=== PATIENT | female | born 1970 | race Caucasian/White ===

== ENCOUNTER 2016-06-03 05:47 | Day surgery (SDC) | payer BC ==
[2016-05-19 09:37] VITALS: BMI 28.8
--- NOTE | 2016-06-02 10:05 | HP ---
[facility] - Chief Complaint Chief Complaint: right knee pain - Past Medical History Allergies/Adverse Reactions: Allergies Allergy/AdvReac Type Severity Reaction Status Date / Time peanut Allergy Severe Difficulty Verified 05/19/16 09:25 Breathing Penicillins Allergy Severe Difficulty Verified 05/19/16 09:25 Breathing ...LMP: 05/19/13 - Current Medications Current Medications: Medication Instructions Recorded NK [No Known Home Medication] 05/19/16 [facility] Physical Exam - Physical Examination General Appearance: Well Nourished, Well Developed, Alert & Oriented x3 ENT: Clear Lung: Normal air movement Heart: Regular rate & rhythm Extremities: Other (right knee- + swelling, + ttp, decr rom, nvi xrays show medial and PF djd) Neurological: Intact, Alert, Oriented Satellite Impression/Plan - Impression/Plan Impression: right knee djd Operative Procedure: right bicom makoplasty Date to be Performed: 06/03/16
[2016-06-03] MEDS ORDERED: TRANEXAMIC ACID 1000 MG/10 ML VIAL IVPUSH ONE (06:18)
[2016-06-03] MEDS ORDERED: GABAPENTIN 300 MG CAPSULE (FP) PO ONE (06:18)
[2016-06-03] MEDS ORDERED: CEFAZOLIN 2 GM in DEXTROSE 5%-WATER - 50 ML IVPB ONE (06:18)
[2016-06-03] MEDS ORDERED: ROPIVICAINE 0.2%/MORPH PF/KETOROLAC - 51ML DISP.SYRINGE IA ONE ×2 (06:18→10:22)
[2016-06-03] MEDS ORDERED: CELECOXIB 200 MG CAPSULE PO ONE (06:18)
[2016-06-03] MEDS ORDERED: oxyCODONE HCL 10 MG SUSTAINED ACTING TABLET PO ONE (06:18)
[2016-06-03] MEDS ORDERED: MIDAZOLAM HCL 2 MG/2 ML SINGLE DOSE VIAL ONE (06:28)
[2016-06-03] MEDS ORDERED: DEXAMETHASONE SOD PHOSPHATE/PF 10 MG/ML SDV ONE (06:28)
[2016-06-03] MEDS ORDERED: ROPIVACAINE HCL 0.5% 30ML VIAL ONE (06:28)
[2016-06-03] MEDS ORDERED: LIDOCAINE 1% P/F 10 MG/ML VIAL ONE (06:32)
[2016-06-03] MEDS ORDERED: THROMBIN (BOVINE) 5,000 UNIT VIAL TP ONE ×2 (07:17→08:55)
[2016-06-03] MEDS ORDERED: GELATIN, ABSORBABLE 100 EACH SPONGE TP ONE (07:18)
[2016-06-03] MEDS ORDERED: ceFAZolin SODIUM 1 GM VIAL ONE (07:52)
[2016-06-03] MEDS ORDERED: PROPOFOL 20 ML ONE ×5 (07:52→10:02)
[2016-06-03] MEDS ORDERED: ONDANSETRON 4 MG/2 ML VIAL IVPUSH PRN (10:01)
[2016-06-03] MEDS ORDERED: ACETAMINOPHEN 1000 MG/100 ML VIAL (NON FORMULARY) IVPB ONE (10:02)
[2016-06-03] MEDS ORDERED: oxyCODONE HCL 5 MG TABLET PO PRN (10:03)
[2016-06-03] MEDS ORDERED: LACTATED RINGERS SOLUTION 1,000 ML IV SCH ×2 (10:15→11:00)
[2016-06-03] MEDS ORDERED: MAG HYDROX/AL HYDROX/SIMETH 30 ML UNIT-DOSE CUP PO PRN (10:50)
--- NOTE | 2016-06-03 10:54 | OP ---
Operative Note - Note: Operative Date: 06/03/16 (ksenia) Pre-Operative Diagnosis: right knee djd Operation: right bicom makoplasty Post-Operative Diagnosis: Same as Pre-op Surgeon: [facility] Food Service Worker: Donavan Raymond) Anesthesiologist/DRUM HANDLER: Ronny Kumar Anesthesia: Spinal, Local Specimens Removed: bone fragments Estimated Blood Loss (mls): 100 Operative Report Dictated: Yes
[2016-06-03] MEDS ORDERED: ONDANSETRON 4 MG/2 ML VIAL IVPB PRN (16:03)
[2016-06-03] MEDS: oxyCODONE HCL 5 MG TABLET PO PRN ×2 (16:45→21:33)
[2016-06-03] MEDS ORDERED: VANCOMYCIN 1,250 MG in DEXTROSE 5%-WATER - 250 ML IVPB ONE (20:00)
[2016-06-03] MEDS ORDERED: REFRIGERATED ANITBIOTICS ONE (21:10)
[2016-06-03] MEDS: SENNOSIDES/DOCUSATE COMBO (SENNA PLUS) TABLET (UD) PO SCH (21:33)
[2016-06-03] MEDS: GABAPENTIN 300 MG CAPSULE (FP) PO SCH (21:34)
[2016-06-03] MEDS: oxyCODONE HCL 10 MG SUSTAINED ACTING TABLET PO SCH (21:34)
[2016-06-04] MEDS ORDERED: ASPIRIN 325 MG TABLET PO SCH (08:00)
--- NOTE | 2016-06-04 08:02 | PN ---
Progress Note (short form) - Note Progress Note: Ortho Pt seen and examined s/p right bicom toya pod #1 Selected Entries 06/04/16 06:00 Temperature 99.2 F Pulse Rate 62 Respiratory 18 Rate Blood Pressure 123/79 dressing c/d/i, calf soft, nt rom 0-60, nvi a/p PT dvt ppx pain control d/c home today f/u in 1 week
--- NOTE | 2016-06-04 08:03 | DS ---
Physical Examination Vital Signs: Vital Signs Temperature 99.2 F 06/04/16 06:00 Pulse Rate 62 06/04/16 06:00 Respiratory Rate 18 06/04/16 06:00 Blood Pressure 123/79 06/04/16 06:00 O2 Sat by Pulse Oximetry (%) 94 L 06/04/16 06:00 Discharge Summary Reason For Visit: RIGHT KNEE OSTEOARTHRITIS Procedures: Principal: s/p right bicom toya Hospital Course: admitted for elective right bicom toya, uneventful post-op, stable for d/c Condition: Good - Instructions Diet, Activity, Other Instructions: Post-op Instructions-Partial Knee Replacement Call the office for a follow-up appointment in 1 week - [phone] Aspirin 325mg daily for 6 weeks. Pain medication was sent into your pharmacy. Apply Graduated Compression Stockings (TEDs) to both lower extremities- remove daily for hygiene ONLY Apply Sequential Compression Device (SCDs) to both Lower extremities remove for PT and hygiene ONLY Apply cold packs to affected area for 15 minutes every 2 hours. Physical Therapist will come to your home for the first 5 days. You will be set up with outpatient PT at your first post-operative visit. Patient may ambulate as tolerated-encourage self care (at least every 2-3 hours while awake) with walker or cane Maintain Aquacel (waterproof) dressing to operative wound (will be removed by surgeon at first office visit) Shower with Aquacel dressing in place-if Aquacel integrity compromised, remove and apply dry sterile dressing and notify Orthopedist. DO NOT SHOWER unless Orthopedists approves without Aquacel dressing CONTACT THE OFFICE FOR ANY CHANGE IN YOUR CONDITION (for example-fever greater than 102 degrees,excessive bleeding from operative site, purulent drainage, severe swelling or pain) GO TO THE EMERGENCY ROOM IF THERE IS A MEDICAL EMERGENCY Knee Precautions: * Keep a rolled towel under affected heel while in bed or chair (to keep knee in extension) * Keep affected leg elevated except during mealtimes * DO NOT PLACE PILLOW UNDER AFFECTED KNEE * If you have any questions, please do not hesitate to call the office - [phone]. Referrals: Donavan Raymond MD [Staff Physician] - Disposition: VNS/HOME HEALTH CARE - Home Medications Comprehensive Discharge Medication List: Ambulatory Orders Aspirin [ASA -] 325 mg PO DAILY@0800 tablet 06/03/16 Oxycodone HCl/Acetaminophen [Percocet 5-325 mg Tablet -] 1 - 2 tab PO Q6H #50 tab MDD 8 06/03/16
--- NOTE | 2016-06-04 08:59 | OP ---
DATE OF OPERATION: 06/03/2016 PREOPERATIVE DIAGNOSIS: Degenerative joint disease, right knee. POSTOPERATIVE DIAGNOSIS: Degenerative joint disease, right knee. PROCEDURE: Right medial and patellofemoral replacement with robotic assisted navigation (MAKOplasty). SURGICAL ATTENDING: Petre Art MD DIRECTOR FINANCIAL SERVICES: Donavan Raymond MD, and LUPILLO Ho ANESTHESIA: Spinal and regional. CLOSURE: Medial and patellofemoral LUIS components of appropriate size, No. 1 Vicryl fascia, 0 and 2-0 subcutaneous, and 3-0 Monocryl subcuticular with skin glue. ESTIMATED BLOOD LOSS: Less Than 100 mL. COMPLICATIONS: None. CONDITION: To recovery room in stable condition. DESCRIPTION OF OPERATIVE PROCEDURE: Patient was taken to the operating room on June 03, 2016. Spinal and regional anesthesia was administered by the anesthesiologist. IV vancomycin was administered prophylactically as patient was PENICILLIN-allergic. A well-padded pneumatic tourniquet was placed on the right proximal thigh. Preoperative TXA was also administered. The right lower extremity was prepped and draped in the usual sterile fashion. Through 2 small stab incisions in the femur and in the tibia, bicortical pins were drilled in parallel fashion. To these pins were fashion the LUIS arrays. A medial parapatellar arthrotomy was then made utilizing the previous incision from her ACL reconstruction many years prior and then propagating it further proximally. Hemostasis was achieved using Bovie cautery. Sharp dissection was carried down to the level of the extensor mechanism, fish flaps to perform the procedure, just enough to adilene the patella 90 degrees. The patella was then osteotomized down to the appropriate level. A 32 lollypop was used to drill lug holes in the patella. Subperiosteal dissection was done in the anteromedial proximal tibia exposing the medial compartment. Partial fat pad was excised. Checkpoints were placed both on the femur and the tibia. The knee was then registered with the navigation device with center of rotation of the hip, both malleoli, and multiple points on the femur and on the tibia. After excellent registration was done, the osteophytes were then removed. Tensioning was done and flexion and extension at multiple points in serial increasing in flexion in order to propagate a flexion-extension graft. The original components were moved to optimize appropriate position. Cartilage mapping on the transition point between the femur and the trochlear component were also performed as well as confirming sized line and cartilage mapping around the trochlear component. The robot was then brought into the field and registered. The femur, the medial femoral condyle, the trochlea, and the tibia were all cut using the robotic arm to the preoperative template. All excess bone and osteophytes were removed. The meniscus was removed, as well. Trial components were then applied. The knee was taken through a range of motion and felt to get a full extension, full flexion, with excellent tracking of the patella and good tension and flexion and varus/valgus. The trial components were then removed. The knee was post-antibiotic irrigated and packed with Gelfoam and thrombin. The leg was exsanguinated with an Esmarch bandage. The tourniquet was inflated to 275 mmHg. The real components were then cemented in using modern generation cement techniques with antibiotic, cement. The knee was thoroughly inspected to remove all excess cement. A 9-mm polyethylene was then clipped into place. Knee was taken through a range of motion again and felt to have excellent tracking of the patellofemoral joint and good tensioning throughout the flexion and extension with excellent range of motion. The checkpoints and the pins were removed. The knee was thoroughly antibiotic irrigated. Medial parapatellar arthrotomy was then closed using No. 1 Vicryl suture, 0 and 2-0 subcutaneous, 3-0 Monocryl subcuticular for skin with skin glue, a 4-0 Vicryl for the pin sites. Sterile pressure dressing Aquacel variety was applied. Tourniquet was deflated. Total tourniquet time was approximately 25 minutes. Another gram of TXA was given just prior to deflating of the tourniquet. Patient was awakened from anesthesia and transferred to the recovery room in stable condition. No complications. Estimated blood loss about 100 mL. Shania [id number]
--- NOTE | 2016-06-04 09:32 | PN ---
Progress Note (short form) - Note Progress Note: 46F POD1 s/p R knee makoplasty under spinal with adductor canal block doing well. Pt reports pain is well controlled, AVSS, reports no anesthetic complications. Sensory and motor function intact in both lower extremities.
[2016-06-04] MEDS: GABAPENTIN 300 MG CAPSULE (FP) PO SCH (09:43)
[2016-06-04] MEDS: SENNOSIDES/DOCUSATE COMBO (SENNA PLUS) TABLET (UD) PO SCH (09:43)
[2016-06-04] MEDS: oxyCODONE HCL 10 MG SUSTAINED ACTING TABLET PO SCH (09:43)
[2016-06-04] MEDS ORDERED: MULTIVITAMINS (DAILY MVI) TABLET (FP) PO SCH (10:00)
[2016-06-04] MEDS ORDERED: PANTOPRAZOLE 40 MG TABLET (FP) PO SCH (10:00)
[2016-06-04 14:10] VITALS: BP 124/73; PULSE 74; TEMP 98.1
== END 2016-06-04 15:05 | disposition home health service (06) ==
LOC: FASU 05:47 → FM/S 12:26 → FASU 06-04 15:05
PROVIDERS: ATTEND Orthopaedic Surgery
PROC: 8E0YXBZ Computer Assisted Procedure of Lower Extremity (ICD-10-PCS; 2016-06-03)
PROC: 8E0Y0CZ Robotic Assisted Procedure of Lower Extremity, Open Approach (ICD-10-PCS; 2016-06-03)
PROC: 0SRC0L9 Replacement of Right Knee Joint with Medial Unicondylar Synthetic Substitute, Cemented, Open Approach (ICD-10-PCS; principal; 2016-06-03 08:41)
DX: M17.11 Unilateral primary osteoarthritis, right knee (principal)
CPT/HCPCS: 20985; 27446; C1776; S2900; 73560-TC-RT; 84703; 94010; 94760; 97116-GP; 97162-PG

== ENCOUNTER 2016-08-19 14:42 | Emergency (ER) | payer BC ==
[2016-08-19] MEDS ORDERED: methylPREDNISolone NA SUCC 125 MG/2 ML VIAL IVPB ONE (14:46)
[2016-08-19] MEDS ORDERED: SODIUM CHLORIDE 1,000 ML IV STA (14:46)
[2016-08-19] MEDS ORDERED: FAMOTIDINE 20 MG/50 ML IVPB 50 ML IVPB ONE ×2 (14:46→15:00)
[2016-08-19] MEDS ORDERED: ALBUTEROL SO4 0.083% IH SOL 2.5 MG/3 ML VIAL.NEB. NEB ONE ×2 (14:46→15:01)
--- NOTE | 2016-08-19 14:59 | PDOC ---
History of Present Illness - History of Present Illness Initial Comments: 08/19/16 15:08 The patient is a 46 year old female with no PMHx who presents to the ED after an allergic reaction today. Patient states she is unaware what caused her allergic reaction, but she began to get hives and shortness of breath. She took Benadryl and two epi pens with some relief. She presents now still with hives and mildly short of breath. She denies fever, chills, nausea, vomiting, diarrhea. <Emelia Elizabeth - Last Filed: 08/19/16 15:08> - General History Source: Patient Exam Limitations: No Limitations <Dalton Montano - Last Filed: 08/19/16 16:59> - General Chief Complaint: Allergic Reaction Stated Complaint: ALLERGIC Time Seen by Provider: 08/19/16 14:44 Past History <Emelia Elizabeth - Last Filed: 08/19/16 15:08> - Past Medical History Anemia: No Asthma: No Cancer: No Cardiac Disorders: No CVA: No COPD: No CHF: No Dementia: No Diabetes: No GI Disorders: No Disorders: No HTN: No Hypercholesterolemia: No Liver Disease: No Seizures: No Thyroid Disease: No - Surgical History Abdominal Surgery: Yes Appendectomy: No Cardiac Surgery: No Cholecystectomy: Yes Lung Surgery: No Neurologic Surgery: No Orthopedic Surgery: Yes (bilateral knee arthroscopy) - Immunization History Immunization Up to Date: No - Psycho/Social/Smoking Cessation Hx Anxiety: No Suicidal Ideation: No Smoking Status: No Smoking History: Former smoker Have you smoked in the past 12 months: No Number of Cigarettes Smoked Daily: 0 If you are a former smoker, when did you quit?: 1992 Hx Alcohol Use: Yes (SOCIALLY) Drug/Substance Use Hx: No Substance Use Type: Alcohol Hx Substance Use Treatment: No <Dalton Montano - Last Filed: 08/19/16 16:59> - Past Medical History Allergies/Adverse Reactions: Allergies Allergy/AdvReac Type Severity Reaction Status Date / Time peanut Allergy Severe Difficulty Verified 05/19/16 09:25 Breathing Penicillins Allergy Severe Difficulty Verified 05/19/16 09:25 Breathing Home Medications: Ambulatory Orders Aspirin [ASA -] 325 mg PO DAILY@0800 tablet 06/03/16 Oxycodone HCl/Acetaminophen [Percocet 5-325 mg Tablet -] 1 - 2 tab PO Q6H #50 tab MDD 8 06/03/16 Diphenhydramine HCl [Benadryl -] 25 mg PO Q6H PRN #28 capsule 08/19/16 Epinephrine (Epi-Pen 0.3MG) [Epipen 0.3MG -] 0.3 mg IM ASDIR PRN #2 pens Prednisone [Deltasone -] 60 mg PO DAILY #9 tablet 08/19/16 Ranitidine HCl [Zantac] 150 mg PO BID PRN #20 tablet 08/19/16 Review of Systems - Review of Systems Comments:: 08/19/16 15:08 GENERAL/CONSTITUTIONAL: No fever or chills. No weakness. HEAD, EYES, EARS, NOSE AND THROAT: No change in vision. No ear pain or discharge. No sore throat. CARDIOVASCULAR: + shortness of breath. No chest pain RESPIRATORY: No cough, wheezing, or hemoptysis. GASTROINTESTINAL: No nausea, vomiting, diarrhea or constipation. GENITOURINARY: No dysuria, frequency, or change in urination. MUSCULOSKELETAL: No joint or muscle swelling or pain. No neck or back pain. SKIN: + hives, No rash NEUROLOGIC: No headache, vertigo, loss of consciousness, or change in strength/ sensation. ENDOCRINE: No increased thirst. No abnormal weight change. HEMATOLOGIC/LYMPHATIC: No anemia, easy bleeding, or history of blood clots. ALLERGIC/IMMUNOLOGIC: No hives or skin allergy. <Emelia Elizabeth - Last Filed: 08/19/16 15:08> *Physical Exam - Physical Exam Comments: 08/19/16 15:08 GENERAL: Awake, alert, and fully oriented, in no acute distress HEAD: No signs of trauma EYES: PERRLA, EOMI, sclera anicteric, conjunctiva clear ENT: oropharynx clear without exudates. Auricles normal inspection, hearing grossly normal, nares patent, Moist mucosa NECK: Normal ROM, supple, no lymphadenopathy, JVD, or masses LUNGS: Breath sounds equal, clear to auscultation bilaterally. No wheezes, and no crackles HEART: Regular rate and rhythm, normal S1 and S2, no murmurs, rubs or gallops ABDOMEN: Soft, nontender, normoactive bowel sounds. No guarding, no rebound. No masses EXTREMITIES: Normal range of motion, no edema. No clubbing or cyanosis. No cords, erythema, or tenderness NEUROLOGICAL: Cranial nerves II through XII grossly intact. Normal speech, normal gait SKIN: Diffuse urticaria. Warm, Dry, normal turgor, no rashes or lesions noted. <Emelia Elizabeth - Last Filed: 08/19/16 15:08> Medical Decision Making - Medical Decision Making 08/19/16 15:53 A portion of this note was documented by scribe services under my direction. I have reviewed the details of the note, within reason, and agree with the documentation with the following case summary and management plan written by me. Patient treated in the ED. Nursing notes are reviewed and incorporated into the medical decision-making. Vital signs reviewed. Peripheral IV access obtained by the nurse, laboratory studies are drawn and sent, reviewed and interpreted by myself. Vital Signs Temp Pulse Resp BP Pulse Ox 98.6 F 84 20 157/99 99 08/19/16 14:43 08/19/16 14:43 08/19/16 14:43 08/19/16 15:23 08/19/16 14:43 46-year-old female with no past medical history presents with ALLERGIC reaction. Patient reported naproxen hour prior to arrival, the patient started developing urticaria and difficulty breathing. She is ALLERGIC to penicillin but does not know any known source what may have exacerbated her symptoms. She was given 2 doses of epinephrine which she felt improvement and came to the ED. Currently she feels with some hives but improved. Denies difficulty breathing at this time. Patient is with an ALLERGIC reaction at this time. However, the patient's oropharynx is clear. We'll give Solu-Medrol, Benadryl, Pepcid and one dose of albuterol and observe the patient. 08/19/16 16:51 The patient has been observed for over 2 hours. She has been a symptomatically feeling well. I had talked with the patient and now the patient is accompanied by her . Patient states that she feels well like to go home. I had given instructions that there is a potential rebound effect at 6 hour. Patient verbalizes understanding that despite the symptoms, she would like to go home. She understands that the symptoms are recurrent or rebounds, that she will return to the ER for further evaluation. Chart diagnosis: ALLERGIC reaction I discussed the physical exam findings, ancillary test results and final diagnoses with the patient. I answered all of the patient's questions. The patient was satisfied with the care received and felt comfortable with the discharge plan and treatment plan. The patient will call their primary care physician within 24 hours to arrange follow-up and will return to the Emergency Department with any new, persistant or worsening symptoms. <Dalton Montano - Last Filed: 08/19/16 16:59> *DC/Admit/Observation/Transfer - Attestations Scribe Attestion: 08/19/16 15:09 Documentation prepared by Emelia Elizabeth, acting as certified medical technician for Dalton Montano MD. <Emelia Elizabeth - Last Filed: 08/19/16 15:08> - Discharge Dispostion Admit: No <Dalton Montano - Last Filed: 08/19/16 16:59> Diagnosis at time of Disposition: Allergic reaction Qualifiers: Encounter type: initial encounter Qualified Code(s): T78.40XA - Allergy, unspecified, initial encounter - Discharge Dispostion Disposition: HOME Condition at time of disposition: Improved - Prescriptions Prescriptions: Diphenhydramine HCl [Benadryl -] 25 mg PO Q6H PRN #28 capsule PRN Reason: Itchiness/Rash Prednisone [Deltasone -] 60 mg PO DAILY #9 tablet Epinephrine (Epi-Pen 0.3MG) [Epipen 0.3MG -] 0.3 mg IM ASDIR PRN #2 pens PRN Reason: Anaphylaxis Ranitidine HCl [Zantac] 150 mg PO BID PRN #20 tablet PRN Reason: Allergic Reaction - Referrals Referrals: Mick Smith MD [Staff Physician] - - Patient Instructions Printed Discharge Instructions: DI for General Allergic Reactions Additional Instructions: Take 25 mg of Benadryl every 6 hours as needed for itching. For additional relief, take 150 mg Zantac every 12 hours as needed. It is important that you continue to take prednisone as prescribed. If he develop difficulty breathing or throat swelling, take a EpiPen and return to the ED. Please make an appointment with an shipyard laborer.
[2016-08-19] MEDS ORDERED: methylPREDNISolone NA SUCC 125 MG/2 ML VIAL ONE (15:00)
[2016-08-19 15:21] VITALS: TEMP 98.6; BMI 28.6
[2016-08-19 16:54] VITALS: BP 150/91; PULSE 97
== END 2016-08-19 17:07 | disposition home or self-care (01) ==
LOC: FER 14:42
PROC: 3E0F7GC Introduction of Other Therapeutic Substance into Respiratory Tract, Via Natural or Artificial Opening (ICD-10-PCS; principal; 2016-08-19)
PROC: 3E033GC Introduction of Other Therapeutic Substance into Peripheral Vein, Percutaneous Approach (ICD-10-PCS; 2016-08-19)
PROC: 3E0337Z Introduction of Electrolytic and Water Balance Substance into Peripheral Vein, Percutaneous Approach (ICD-10-PCS; 2016-08-19)
DX: T78.40XA Allergy, unspecified, initial encounter (principal); Z87.891 Personal history of nicotine dependence
CPT/HCPCS: 99283-25

== ENCOUNTER 2016-09-08 12:48 | Emergency (ER) | payer BC ==
[2016-09-08 12:57] VITALS: TEMP 98; BMI 27.3
[2016-09-08] MEDS ORDERED: SODIUM CHLORIDE 1,000 ML IV STA (13:02)
[2016-09-08] MEDS ORDERED: ALBUTEROL SO4 0.083% IH SOL 2.5 MG/3 ML VIAL.NEB. NEB ONE (13:02)
[2016-09-08] MEDS ORDERED: FAMOTIDINE 20 MG/50 ML IVPB 50 ML IVPB ONE ×2 (13:02→13:13)
[2016-09-08] MEDS ORDERED: methylPREDNISolone NA SUCC 125 MG/2 ML VIAL IVPB ONE (13:02)
[2016-09-08] MEDS ORDERED: EPINEPHrine 1:1,000 0.3 MG/0.3 ML SYR IM ONE (13:02)
[2016-09-08] MEDS ORDERED: EPINEPHrine/PF 1 MG/1 ML (1:1,000) AMPULE ONE (13:05)
[2016-09-08] MEDS ORDERED: methylPREDNISolone NA SUCC 125 MG/2 ML VIAL ONE (13:05)
[2016-09-08 14:22] VITALS: BP 161/92
--- NOTE | 2016-09-08 14:55 | PDOC ---
History of Present Illness - General History Source: Patient Exam Limitations: No Limitations <Dalton Montano - Last Filed: 09/08/16 14:50> - General History Source: Patient, Old Records Exam Limitations: No Limitations - History of Present Illness Initial Comments: 09/08/16 15:12 The patient is a 46 year old female, with no significant past medical history, who presents to the emergency department with shortness of breath due to an allergic reaction that occurred today. She states that she ate a cookie that had peanuts in them, for which she was not aware. This occurred around 12:30pm. She took 2 benadryls immediately afterwards and came to the ED for evaluation. On presentation she reports that she feels as if her throat is closing up. She denies using her epi-pen. The patient denies chest pain, shortness of breath, headache and dizziness. Allergies: Peanuts, penicillin Past surgical history: bilateral knee arthroscopy, cholecystectomy Social history: Former smoker, social alcohol use. No drug use reported <Arie Cadet - Last Filed: 09/08/16 15:19> - General Chief Complaint: Allergic Reaction Stated Complaint: ALLERGIC REACTION Time Seen by Provider: 09/08/16 12:59 Past History - Past Medical History Anemia: No Asthma: No Cancer: No Cardiac Disorders: No CVA: No COPD: No CHF: No Dementia: No Diabetes: No GI Disorders: No Disorders: No HTN: No Hypercholesterolemia: No Liver Disease: No Seizures: No Thyroid Disease: No Other medical history: DENIES. - Surgical History Abdominal Surgery: Yes Appendectomy: No Cardiac Surgery: No Cholecystectomy: Yes Lung Surgery: No Neurologic Surgery: No Orthopedic Surgery: Yes (bilateral knee arthroscopy) - Immunization History Immunization Up to Date: No - Psycho/Social/Smoking Cessation Hx Anxiety: No Suicidal Ideation: No Smoking Status: No Smoking History: Former smoker Have you smoked in the past 12 months: No Number of Cigarettes Smoked Daily: 0 If you are a former smoker, when did you quit?: 1992 Information on smoking cessation initiated: No Hx Alcohol Use: Yes (SOCIALLY) Drug/Substance Use Hx: No Substance Use Type: Alcohol Hx Substance Use Treatment: No <Dalton Montano - Last Filed: 09/08/16 14:50> <Arie Cadet - Last Filed: 09/08/16 15:19> - Past Medical History Allergies/Adverse Reactions: Allergies Allergy/AdvReac Type Severity Reaction Status Date / Time peanut Allergy Severe Difficulty Verified 09/08/16 12:52 Breathing Penicillins Allergy Severe Difficulty Verified 09/08/16 12:52 Breathing Home Medications: Ambulatory Orders Aspirin [ASA -] 325 mg PO DAILY@0800 tablet 06/03/16 Oxycodone HCl/Acetaminophen [Percocet 5-325 mg Tablet -] 1 - 2 tab PO Q6H #50 tab MDD 8 06/03/16 Diphenhydramine HCl [Benadryl -] 25 mg PO Q6H PRN #28 capsule 08/19/16 Epinephrine (Epi-Pen 0.3MG) [Epipen 0.3MG -] 0.3 mg IM ASDIR PRN #2 pens Prednisone [Deltasone -] 60 mg PO DAILY #9 tablet 08/19/16 Ranitidine HCl [Zantac] 150 mg PO BID PRN #20 tablet 08/19/16 Prednisone [Deltasone] 60 mg PO DAILY #12 tablet 09/08/16 Review of Systems - Review of Systems Able to Perform ROS?: Yes Comments:: 09/08/16 15:16 GENERAL/CONSTITUTIONAL: No fever or chills. No weakness. HEAD, EYES, EARS, NOSE AND THROAT: No change in vision. No ear pain or discharge. No sore throat. CARDIOVASCULAR: (+) Shortness of breath, secondary to allergic reaction. No chest pain. RESPIRATORY: No cough, wheezing, or hemoptysis. GASTROINTESTINAL: No nausea, vomiting, diarrhea or constipation. GENITOURINARY: No dysuria, frequency, or change in urination. MUSCULOSKELETAL: No joint or muscle swelling or pain. No neck or back pain. SKIN: No rash NEUROLOGIC: No headache, vertigo, loss of consciousness, or change in strength/ sensation. ENDOCRINE: No increased thirst. No abnormal weight change HEMATOLOGIC/LYMPHATIC: No anemia, easy bleeding, or history of blood clots. ALLERGIC/IMMUNOLOGIC: (+)Throat swelling secondary to allergic reaction. No hives or skin allergy. <Arie Cadet - Last Filed: 09/08/16 15:19> *Physical Exam - Vital Signs Last Vital Signs Temp Pulse Resp BP Pulse Ox 98 F 92 H 18 161/92 99 09/08/16 12:52 09/08/16 14:22 09/08/16 14:22 09/08/16 14:22 09/08/16 14:22 <CharmaineDalton - Last Filed: 09/08/16 14:50> - Vital Signs Last Vital Signs Temp Pulse Resp BP Pulse Ox 98 F 91 H 18 161/92 99 09/08/16 12:52 09/08/16 14:56 09/08/16 14:56 09/08/16 14:22 09/08/16 14:56 - Physical Exam Comments: 09/08/16 15:18 GENERAL: Awake, alert, and fully oriented, in no acute distress HEAD: No signs of trauma, normocephalic, atraumatic EYES: PERRLA, EOMI, sclera anicteric, conjunctiva clear ENT: Auricles normal inspection, hearing grossly normal, nares patent, oropharynx clear without exudates. Moist mucosa NECK: Normal ROM, supple, no lymphadenopathy, JVD, or masses LUNGS: No distress, speaks full sentences, clear to auscultation bilaterally HEART: Regular rate and rhythm, normal S1 and S2, no murmurs, rubs or gallops, peripheral pulses normal and equal bilaterally. ABDOMEN: Soft, nontender, normoactive bowel sounds. No guarding, no rebound. No masses EXTREMITIES: Normal inspection, Normal range of motion, no edema. No clubbing or cyanosis. NEUROLOGICAL: Cranial nerves II through XII grossly intact. Normal speech, normal gait, no focal sensorimotor deficits SKIN: Warm, Dry, normal turgor, no rashes or lesions noted. <Arie Cadet - Last Filed: 09/08/16 15:19> ED Treatment Course - Medications Given in the ED: ED Medications Discontinued Medications Generic Name Dose Route Start Last Admin Trade Name Freq PRN Reason Stop Dose Admin Albuterol Sulfate 1 amp 09/08/16 13:02 09/08/16 13:10 Ventolin 0.083% Nebulizer Soln - NEB 09/08/16 13:03 1 amp ONCE ONE Administration Epinephrine HCl 0.3 mg 09/08/16 13:02 09/08/16 13:10 Epipen 0.3mg - IM 09/08/16 13:03 0.3 mg ONCE ONE Administration Famotidine/Sodium Chloride 50 mls @ 100 mls/hr 09/08/16 13:02 09/08/16 13:17 Pepcid 20 Mg Premixed Ivpb - IVPB 09/08/16 13:31 100 mls/hr ONCE ONE Administration Sodium Chloride 1,000 mls @ 1,000 mls/hr 09/08/16 13:02 09/08/16 13:16 Normal Saline - IV 09/08/16 14:01 1,000 mls/hr ASDIR STA Administration Methylprednisolone Sodium Succinate 125 mg 09/08/16 13:02 09/08/16 13:10 Solu-Medrol - IVPB 09/08/16 13:03 125 mg ONCE ONE Administration <Dalton Montano - Last Filed: 09/08/16 14:50> - Medications Given in the ED: ED Medications Discontinued Medications Generic Name Dose Route Start Last Admin Trade Name Rasheedq PRN Reason Stop Dose Admin Albuterol Sulfate 1 amp 09/08/16 13:02 09/08/16 13:10 Ventolin 0.083% Nebulizer Soln - NEB 09/08/16 13:03 1 amp ONCE ONE Administration Epinephrine HCl 0.3 mg 09/08/16 13:02 09/08/16 13:10 Epipen 0.3mg - IM 09/08/16 13:03 0.3 mg ONCE ONE Administration Famotidine/Sodium Chloride 50 mls @ 100 mls/hr 09/08/16 13:02 09/08/16 13:17 Pepcid 20 Mg Premixed Ivpb - IVPB 09/08/16 13:31 100 mls/hr ONCE ONE Administration Sodium Chloride 1,000 mls @ 1,000 mls/hr 09/08/16 13:02 09/08/16 13:16 Normal Saline - IV 09/08/16 14:01 1,000 mls/hr ASDIR STA Administration Methylprednisolone Sodium Succinate 125 mg 09/08/16 13:02 09/08/16 13:10 Solu-Medrol - IVPB 09/08/16 13:03 125 mg ONCE ONE Administration <Arie Cadet - Last Filed: 09/08/16 15:19> Medical Decision Making - Medical Decision Making 09/08/16 14:50 A portion of this note was documented by scribe services under my direction. I have reviewed the details of the note, within reason, and agree with the documentation with the following case summary and management plan written by me. Patient treated in the ED. Nursing notes are reviewed and incorporated into the medical decision-making. Vital signs reviewed. Peripheral IV access obtained by the nurse, laboratory studies are drawn and sent, reviewed and interpreted by myself. Vital Signs Temp Pulse Resp BP Pulse Ox 98 F 92 H 18 161/92 99 09/08/16 12:52 09/08/16 14:22 09/08/16 14:22 09/08/16 14:22 09/08/16 14:22 46-year-old female with no past medical history presents with ALLERGIC reaction. I seems patient approximately 3 weeks ago for some her symptoms. She reports that she ate a cookie with peanuts and soon became ALLERGIC. She developed started feel itchy and felt like her throat is closing sensation. I had given her an epinephrine pen and her symptoms improved. Given her Solu- Medrol and Pepcid. Patient rates of Benadryl at home. Patient reports that she is ALLERGIC to peanuts. Patient has been observed for a little over 2 hours with no symptoms. Again, like our prior visit, patient states that she feels better like to go home. I had given her precautions about rebound anaphylaxis. Patient was in his agrees with plan. She'll follow-up with her rn concurrent review. I discussed the physical exam findings, ancillary test results and final diagnoses with the patient. I answered all of the patient's questions. The patient was satisfied with the care received and felt comfortable with the discharge plan and treatment plan. The patient will call their primary care physician within 24 hours to arrange follow-up and will return to the Emergency Department with any new, persistant or worsening symptoms. 09/08/16 14:55 Pt already has an epi pen and benadyrl at home. <Dalton Montano - Last Filed: 09/08/16 14:50> *DC/Admit/Observation/Transfer - Discharge Dispostion Admit: No <Dalton Montano - Last Filed: 09/08/16 14:50> - Attestations Scribe Attestion: 09/08/16 15:18 Documentation prepared by Arie Cadet, acting as medical research tech for Dalton Montano MD <Arie Cadet - Last Filed: 09/08/16 15:19> Diagnosis at time of Disposition: Allergic reaction Qualifiers: Encounter type: initial encounter Qualified Code(s): T78.40XA - Allergy, unspecified, initial encounter - Discharge Dispostion Disposition: HOME Condition at time of disposition: Improved - Prescriptions Prescriptions: Prednisone [Deltasone] 60 mg PO DAILY #12 tablet - Patient Instructions Printed Discharge Instructions: DI for Peanut Allergy-Adult Additional Instructions: Please take the steroids daily as prescribed. Follow up with your rn concurrent review.
[2016-09-08 14:57] VITALS: PULSE 91
== END 2016-09-08 14:59 | disposition home or self-care (01) ==
LOC: JER 12:48
PROC: 3E0F7GC Introduction of Other Therapeutic Substance into Respiratory Tract, Via Natural or Artificial Opening (ICD-10-PCS; principal; 2016-09-08)
PROC: 3E0233Z Introduction of Anti-inflammatory into Muscle, Percutaneous Approach (ICD-10-PCS; 2016-09-08)
PROC: 3E0333Z Introduction of Anti-inflammatory into Peripheral Vein, Percutaneous Approach (ICD-10-PCS; 2016-09-08)
PROC: 3E033GC Introduction of Other Therapeutic Substance into Peripheral Vein, Percutaneous Approach (ICD-10-PCS; 2016-09-08)
DX: T78.1XXA Other adverse food reactions, not elsewhere classified, initial encounter (principal); R06.02 Shortness of breath; X58.XXXA Exposure to other specified factors, initial encounter
CPT/HCPCS: 99282-25

== ENCOUNTER 2016-12-24 19:34 | Emergency (ER) | payer BC ==
[2016-12-24 20:06] LABS: URINE APPEARANCE Cloudy; URINE BILIRUBIN Negative (NEGATIVE); URINE BLOOD 3+ (NEGATIVE); URINE COLOR YELLOW; URINE GLUCOSE (UA) Negative (NEGATIVE); URINE KETONE Negative (NEGATIVE); URINE LEUK ESTERASE 1+ (NEGATIVE); URINE NITRITE Negative (NEGATIVE); URINE PROTEIN 3+ (NEGATIVE); URINE UROBILINOGEN 0.2 (0.2-1.0)
[2016-12-24 20:25] LABS: URINE BACTERIA MANY /hpf (NEGATIVE); URINE WBC MANY (3-5)
[2016-12-24] MEDS ORDERED: morphine CARPU-JECT 2 MG/1 ML DISP.SYRIN IVPUSH ONE (20:33)
[2016-12-24] MEDS ORDERED: morphine CARPU-JECT 2 MG/1 ML DISP.SYRIN ONE (20:48)
[2016-12-24 20:53] LABS: BASOPHIL 0.3 % (0-2.0); EOSINOPHIL 1.3 % (0-4.5); MCH 31.5 pg (25.7-33.7); MCHC 34.9 g/dl (32.0-36.0); MEAN CELL VOLUME 90.3 fl (80-96); MEAN PLT VOLUME 8.7 fl (7.5-11.1); NEUTROPHILS 73.5 % (42.8-82.8); PLATELET COUNT 296 K/MM3 (134-434); RDW 11.8 % (11.6-15.6); WHITE BLOOD COUNT 16.5 K/mm3 (4.0-10.8)
[2016-12-24 21:01] LABS: ALBUMIN 4.5 g/dl (3.5-5.0); ALK PHOS 53 U/L (32-92); ANION GAP 10 (8-16); CALCIUM 9.2 mg/dl (8.4-10.2); CO2 25 mmol/L (22-28); CREATININE 0.6 mg/dl (0.6-1.3); GLUCOSE,RANDOM 97 mg/dl (74-106); SGOT/AST 21 U/L (10-42); SGPT/ALT 24 U/L (10-40); TOT PROT 7.6 g/dl (6.4-8.3)
[2016-12-24] MEDS ORDERED: ONDANSETRON 4 MG/2 ML VIAL IVPUSH ONE (21:02)
[2016-12-24] MEDS ORDERED: ONDANSETRON 4 MG/2 ML VIAL ONE (21:02)
[2016-12-24 21:19] LABS: BILIRUBIN,TOTAL < 0.3 mg/dl (0.2-1.0)
[2016-12-24 21:31] VITALS: BP 151/90; PULSE 90; TEMP 98.3; BMI 28.1
[2016-12-24] MEDS ORDERED: KETOROLAC TROMETHAMINE 30 MG/1 ML VIAL IVPUSH ONE (21:32)
[2016-12-24] MEDS ORDERED: KETOROLAC TROMETHAMINE 30 MG/1 ML VIAL ONE (21:47)
--- NOTE | 2016-12-24 21:49 | PDOC ---
History of Present Illness - History of Present Illness Initial Comments: 12/24/16 21:54 46 y/o F with no PMHx presents to the ED with right flank pain today. Patient states that two weeks ago, she went to urgent care because she felt UTI symptoms. At urgent care, they did an US and CT and found a large 10 cm renal cyst on her right kidney. While there, a portion of the mass burst causing severe right flank pain and hematuria. Today, she began to have UTI symptoms again and went to urgent care again for antibiotics. She went to the store afterwards and she experienced sudden onset of similar severe right flank pain, which prompted her to come to the ED. She currently reports urinary frequency and urgency but denies dysuria and hematuria. She reports her right flank pain is mild, but exacerbated when she moves and becomes severe. She reports taking Tylenol, which relieved the pain minimally. Denies fever, chills, nausea, vomiting. <Emelia Elizabeth - Last Filed: 12/24/16 21:53> <Daysi Serra - Last Filed: 12/25/16 01:40> - General Chief Complaint: Pain, Acute Stated Complaint: R FLANK PAIN Time Seen by Provider: 12/24/16 21:48 Past History <Emelia Elizabeth - Last Filed: 12/24/16 21:53> - Past Medical History Anemia: No Asthma: No Cancer: No Cardiac Disorders: No CVA: No COPD: No CHF: No Dementia: No GI Disorders: No Disorders: No Liver Disease: No Seizures: No Thyroid Disease: No - Surgical History Abdominal Surgery: Yes Appendectomy: No Cardiac Surgery: No Cholecystectomy: Yes Lung Surgery: No Neurologic Surgery: No Orthopedic Surgery: Yes (bilateral knee arthroscopy) - Immunization History Immunization Up to Date: No - Psycho/Social/Smoking Cessation Hx Anxiety: No Suicidal Ideation: No Smoking Status: No Smoking History: Unknown if ever smoked Have you smoked in the past 12 months: No Number of Cigarettes Smoked Daily: 0 If you are a former smoker, when did you quit?: 1992 Information on smoking cessation initiated: No Hx Alcohol Use: No Drug/Substance Use Hx: No Substance Use Type: Alcohol Hx Substance Use Treatment: No <Daysi Serra - Last Filed: 12/25/16 01:40> - Past Medical History Allergies/Adverse Reactions: Allergies Allergy/AdvReac Type Severity Reaction Status Date / Time peanut Allergy Severe Difficulty Verified 09/08/16 12:52 Breathing Penicillins Allergy Severe Difficulty Verified 09/08/16 12:52 Breathing Home Medications: Ambulatory Orders Aspirin [ASA -] 325 mg PO DAILY@0800 tablet 06/03/16 Oxycodone HCl/Acetaminophen [Percocet 5-325 mg Tablet -] 1 - 2 tab PO Q6H #50 tab MDD 8 06/03/16 Diphenhydramine HCl [Benadryl -] 25 mg PO Q6H PRN #28 capsule 08/19/16 Epinephrine (Epi-Pen 0.3MG) [Epipen 0.3MG -] 0.3 mg IM ASDIR PRN #2 pens Prednisone [Deltasone -] 60 mg PO DAILY #9 tablet 08/19/16 Ranitidine HCl [Zantac] 150 mg PO BID PRN #20 tablet 08/19/16 Prednisone [Deltasone] 60 mg PO DAILY #12 tablet 09/08/16 Review of Systems - Review of Systems : Yes: Frequency, Flank Pain (right), Urgency <Emelia Elizabeth - Last Filed: 12/24/16 21:53> *Physical Exam - Vital Signs Last Vital Signs Temp Pulse Resp BP Pulse Ox 98.3 F 90 15 151/90 100 12/24/16 21:20 12/24/16 21:20 12/24/16 21:20 12/24/16 21:20 12/24/16 21:20 - Physical Exam Comments: 12/24/16 21:54 GENERAL: The patient is awake, alert, and fully oriented, in no acute distress. HEAD: Normal with no signs of trauma. EYES: Pupils equal, round and reactive to light, extraocular movements intact, sclera anicteric, conjunctiva clear with no pallor. ENT: Ears normal, nares patent, oropharynx clear without exudates. Moist mucous membranes. NECK: Normal range of motion, supple without lymphadenopathy, JVD, or masses. LUNGS: Breath sounds equal, clear to auscultation bilaterally. No wheeze/ crackles. HEART: Regular rate and rhythm, normal S1 and S2 without murmur or rub. ABDOMEN: Mild right CVA tenderness. Soft/nondistended. BS wnl. No guarding or rebound. No palpable masses. No hepatosplenomegaly. EXTREMITIES: Normal range of motion, no edema. No clubbing or cyanosis. No cords, erythema, or tenderness. NEUROLOGICAL: Cranial nerves II through XII grossly intact. Normal speech, normal gait. PSYCH: Normal mood, normal affect. SKIN: Warm, Dry, normal turgor, no rashes or lesions noted. <Emelia Elizabeth - Last Filed: 12/24/16 21:53> - Vital Signs Last Vital Signs Temp Pulse Resp BP Pulse Ox 98.3 F 90 15 151/90 100 12/24/16 21:20 12/24/16 21:20 12/24/16 21:20 12/24/16 21:20 12/24/16 21:20 <Daysi Serra - Last Filed: 12/25/16 01:40> ED Treatment Course - LABORATORY CBC & Chemistry Diagram: 12/24/16 20:30 12/24/16 20:30 - ADDITIONAL ORDERS Additional order review: Laboratory Results 12/24/16 12/24/16 20:30 20:00 Sodium 135 L Potassium 3.9 Chloride 100 Carbon Dioxide 25 Anion Gap 10 BUN 18 Creatinine 0.6 Creat Clearance w eGFR > 60 Random Glucose 97 D Calcium 9.2 Total Bilirubin < 0.3 D AST 21 D ALT 24 D Alkaline Phosphatase 53 Total Protein 7.6 Albumin 4.5 Urine Color Yellow Urine Appearance Cloudy Urine pH 6.0 Ur Specific [place] 1.025 Urine Protein 3+ H Urine Glucose (UA) Negative Urine Ketones Negative Urine Blood 3+ H Urine Nitrite Negative Urine Bilirubin Negative Urine Urobilinogen 0.2 Ur Leukocyte Esterase 1+ H Urine RBC 10-15 Urine WBC Many Ur Epithelial Cells Few Urine Bacteria Many Urine HCG, Qual Negative 12/24/16 20:30 RBC 4.52 MCV 90.3 MCHC 34.9 RDW 11.8 MPV 8.7 Neutrophils % 73.5 D Lymphocytes % 19.2 D Monocytes % 5.7 Eosinophils % 1.3 Basophils % 0.3 - Medications Given in the ED: ED Medications Discontinued Medications Generic Name Dose Route Start Last Admin Trade Name Freq PRN Reason Stop Dose Admin Ketorolac Tromethamine 30 mg 12/24/16 21:32 12/24/16 21:35 Toradol Injection - IVPUSH 12/24/16 21:33 30 mg ONCE ONE Administration Morphine Sulfate 2 mg 12/24/16 20:33 12/24/16 20:34 Morphine Injection - IVPUSH 12/24/16 20:34 2 mg ONCE ONE Administration Ondansetron HCl 4 mg 12/24/16 21:02 12/24/16 21:10 Zofran Injection IVPUSH 12/24/16 21:03 4 mg ONCE ONE Administration <Emelia Elizabeth - Last Filed: 12/24/16 21:53> - LABORATORY CBC & Chemistry Diagram: 12/24/16 20:30 12/24/16 20:30 - ADDITIONAL ORDERS Additional order review: Laboratory Results 12/24/16 12/24/16 20:30 20:00 Sodium 135 L Potassium 3.9 Chloride 100 Carbon Dioxide 25 Anion Gap 10 BUN 18 Creatinine 0.6 Creat Clearance w eGFR > 60 Random Glucose 97 D Calcium 9.2 Total Bilirubin < 0.3 D AST 21 D ALT 24 D Alkaline Phosphatase 53 Total Protein 7.6 Albumin 4.5 Urine Color Yellow Urine Appearance Cloudy Urine pH 6.0 Ur Specific [place] 1.025 Urine Protein 3+ H Urine Glucose (UA) Negative Urine Ketones Negative Urine Blood 3+ H Urine Nitrite Negative Urine Bilirubin Negative Urine Urobilinogen 0.2 Ur Leukocyte Esterase 1+ H Urine RBC 10-15 Urine WBC Many Ur Epithelial Cells Few Urine Bacteria Many Urine HCG, Qual Negative 12/24/16 20:30 RBC 4.52 MCV 90.3 MCHC 34.9 RDW 11.8 MPV 8.7 Neutrophils % 73.5 D Lymphocytes % 19.2 D Monocytes % 5.7 Eosinophils % 1.3 Basophils % 0.3 - RADIOLOGY Radiology Studies Ordered: Category Date Time Status SPIRAL- RENAL-STONE CT [CT] Stat CT Scan 12/24/16 20:39 Ordered - Medications Given in the ED: ED Medications Discontinued Medications Generic Name Dose Route Start Last Admin Trade Name Freq PRN Reason Stop Dose Admin Ketorolac Tromethamine 30 mg 12/24/16 21:32 12/24/16 21:35 Toradol Injection - IVPUSH 12/24/16 21:33 30 mg ONCE ONE Administration Morphine Sulfate 2 mg 12/24/16 20:33 12/24/16 20:34 Morphine Injection - IVPUSH 12/24/16 20:34 2 mg ONCE ONE Administration Ondansetron HCl 4 mg 12/24/16 21:02 12/24/16 21:10 Zofran Injection IVPUSH 12/24/16 21:03 4 mg ONCE ONE Administration <Daysi Serra - Last Filed: 12/25/16 01:40> Progress Note - Progress Note Progress Note: Documentation has been prepared under my direction and personally reviewed by me in its entirety. I attest that this documented accurately reflects all work, treatment, procedures and medical decision making performed by me. <Daysi Serra - Last Filed: 12/25/16 01:40> Medical Decision Making - Medical Decision Making As noted above, this otherwise healthy 46-year-old woman presents with severe right flank pain for the last few hours. Recent history (just over 2 weeks ago ) notable for diagnosis of a large right sided renal cyst. This was discovered by her general doctor ([facility]) when she presented with symptoms of a urinary tract infection. Currently, she is again being treated for UTI with oral levofloxacin(seen and treated at urgent care earlier today). Symptoms of severe pain in her side began a few hours after leaving urgent care. Although the pain initially subsided after acetaminophen by mouth, pain recurred and she presented here. Of note, patient was seen by [facility] urology office since original diagnosis; repeat imaging was suggested in 5-6 months. Exam as noted. Laboratory evaluation a CBC/chemistry profile/urinalysis/PGU notable for urinalysis consistent with acute UTI. (Urine culture and sensitivity sent) CBC is also markedly elevated at 16,500. Remainder of the laboratory evaluation is essentially normal. Normal saline, 1 L IV hydration begun. Patient had significant pain on arrival in the emergency room. Because NSAIDs have thrombolytics/nephrotoxic side effects, morphine sulfate 2 mg IV was used for initial analgesia. Approximately 15 minutes after morphine given , patient had episode when she felt she could not breathe. Patient became pale and somewhat diaphoretic. Pulse oximetry remained at 98 -100% on room air during this. There was no evidence of airway edema, stridor, wheezing. Lungs were clear with good air exchange throughout whole episode. Patient's head was lowered and she felt much better after approximately 5 minutes 12-lead electrocardiogram was performed and interpreted by me. This showed normal sinus rhythm at 66 bpm; axis, intervals and wave forms are all normal In order to fully rule out obstructive uropathy/renal abscess in light of flank pain/UTI, renal stone protocol CT was performed and interpreted by Dr. Noel of the radiology staff: No evidence of urolithiasis or obstructive uropathy; the renal cyst was measured at approximately 13.4 x 7.5 x 5.4 centimeters. There was no perirenal fluid collection. There is no CT evidence of cyst rupture or intracystic hemorrhage. Of note, the dimensions of the cyst in today's study is slightly larger than in the study of 12/08( 13.4 cm today/10.3cm on 12/08), although studies were performed in different locations Patient given Toradol 30 mg IV for analgesia, with excellent relief of her pain. Although the patient has elevated white blood cell count and evidence of UTI with flank pain, there is no evidence of obstructive uropathy/perinephric abscess/intracystic hemorrhage or cyst rupture. Her pain is well controlled and she has no nausea/vomiting. Since patient is reliable and otherwise healthy , she will be discharged with instructions to continue her Levaquin as prescribed. She had been told to take Tylenol for pain. She should not work for the next 2 days. Follow-up with her general doctor as scheduled. She is strongly advised to follow-up with urology within the next week to 2 weeks to formulate a plan regarding possible extension of the right renal cyst She should return to the ER if she has has persistent severe pain, fever, vomiting. <Daysi Serra - Last Filed: 12/25/16 01:40> *DC/Admit/Observation/Transfer - Attestations Scribe Attestion: 12/24/16 21:55 Documentation prepared by Emelia Elizabeth, acting as medical bill processor for Daysi Serra MD. <Emelia Elizabeth - Last Filed: 12/24/16 21:53> <Daysi Serra - Last Filed: 12/25/16 01:40> Diagnosis at time of Disposition: Renal cyst UTI (urinary tract infection) Qualifiers: Urinary tract infection type: site unspecified Hematuria presence: with hematuria Qualified Code(s): N39.0 - Urinary tract infection, site not specified - Discharge Dispostion Disposition: HOME Condition at time of disposition: Stable - Patient Instructions Printed Discharge Instructions: Urinary Tract Infection Additional Instructions: continue drinking plenty of water as instructed previously levaquin as prescribed tylenol as needed for pain return to ER if you develop persistent severe pain/fever/vomiting followup with urology within 1-2 weeks as discussed - Post Discharge Activity Work/School Note: Back to Work
--- NOTE | 2016-12-25 15:31 | EKG ---
Test Reason : Blood Pressure : / mmHG Vent. Rate : 066 BPM Atrial Rate : 066 BPM P-R Int : 158 ms QRS Dur : 092 ms QT Int : 450 ms P-R-T Axes : 011 008 028 degrees QTc Int : 471 ms SINUS RHYTHM NONSPECIFIC T WAVE ABNORMALITY WHEN COMPARED WITH ECG OF 19-MAY-2016 08:25, NO SIGNIFICANT CHANGE WAS FOUND Confirmed by ESTER CRAWFORD MD ([id number]) on 12/25/2016 3:30:59 PM Referred By: MD INTERIANO Confirmed By:ESTER CRAWFORD MD
== END 2016-12-24 23:00 | disposition home or self-care (01) ==
LOC: FER 19:34
DX: N39.0 Urinary tract infection, site not specified (principal)
CPT/HCPCS: 36415; 74176; 80053; 81003; 81015; 84703; 85025; 87086; 93005; 93010; 99282-25

== ENCOUNTER 2018-01-17 16:35 | Emergency (ER) | payer BC ==
[2018-01-17 17:10] VITALS: BP 155/100; PULSE 80; TEMP 98; BMI 27.3
[2018-01-17] MEDS ORDERED: IBUPROFEN 600 MG TABLET (FP) PO ONE ×2 (17:34→17:51)
--- NOTE | 2018-01-17 17:38 | PDOC ---
History of Present Illness <Leticia Angulo - Last Filed: 01/17/18 18:57> - General History Source: Patient, Significant Other Exam Limitations: No Limitations - History of Present Illness Initial Comments: 01/17/18 17:36 CHIEF COMPLAINT: Right knee swelling and pain, onset today HISTORY OF PRESENT ILLNESS: 47-year-old female, 20 months status post right knee robotic partial replacement, twisted right knee today and felt it lock up on her. She developed swelling and pain. She was sitting in the car when she twisted her knee and there was no significant trauma. REVIEW OF SYSTEMS: No fever or chills Positive right knee pain, see history of present illness No other joint pains No trauma <Abhi Villavicencio - Last Filed: 01/17/18 19:13> - General Chief Complaint: Pain Stated Complaint: RIGHT KNEE SWELLING Time Seen by Provider: 01/17/18 17:01 Past History <Leticia Angulo - Last Filed: 01/17/18 18:57> - Past Medical History Anemia: No Asthma: No Cancer: No Cardiac Disorders: No CVA: No COPD: No CHF: No Dementia: No GI Disorders: No Disorders: No Liver Disease: No Seizures: No Thyroid Disease: No - Surgical History Abdominal Surgery: Yes Appendectomy: No Cardiac Surgery: No Cholecystectomy: Yes Lung Surgery: No Neurologic Surgery: No Orthopedic Surgery: Yes (bilateral knee arthroscopy, partial right knee replacement May 2016) - Immunization History Immunization Up to Date: No - Suicide/Smoking/Psychosocial Hx Smoking Status: No Smoking History: Never smoked Have you smoked in the past 12 months: No Number of Cigarettes Smoked Daily: 0 If you are a former smoker, when did you quit?: 1992 Hx Alcohol Use: Yes (WEEKENDS) Drug/Substance Use Hx: No Substance Use Type: None Hx Substance Use Treatment: No <Abhi Villavicencio - Last Filed: 01/17/18 19:13> - Past Medical History Allergies/Adverse Reactions: Allergies Allergy/AdvReac Type Severity Reaction Status Date / Time peanut Allergy Severe Difficulty Verified 01/17/18 16:59 Breathing Penicillins Allergy Severe Difficulty Verified 01/17/18 16:59 Breathing Home Medications: Ambulatory Orders EPINEPHrine (EPI-PEN 0.3MG) [Epipen 0.3MG -] 0.3 mg IM ASDIR PRN #2 pens Naproxen [Naprosyn -] 375 mg PO BID PRN #20 tablet 01/17/18 *Physical Exam - Vital Signs Last Vital Signs Temp Pulse Resp BP Pulse Ox 98.0 F 80 16 155/100 99 01/17/18 16:58 01/17/18 16:58 01/17/18 16:58 01/17/18 16:58 01/17/18 16:58 <Leticia Angulo - Last Filed: 01/17/18 18:57> - Vital Signs Last Vital Signs Temp Pulse Resp BP Pulse Ox 98.0 F 80 16 155/100 99 01/17/18 16:58 01/17/18 16:58 01/17/18 16:58 01/17/18 16:58 01/17/18 16:58 - Physical Exam Comments: 01/17/18 17:37 GENERAL: The patient is awake, alert, and fully oriented, in no acute distress. HEAD: Normal with no signs of trauma. EYES: Pupils equal, round and reactive to light, extraocular movements intact, sclera anicteric, conjunctiva clear. EXTREMITIES: Left knee is normal. Right knee with moderately large joint effusion, no erythema, no warmth, positive decreased range of motion due to effusion. NEUROLOGICAL: Normal speech. Gait is limited due to right knee pain. Patient is sitting in a wheelchair. PSYCH: Normal mood, normal affect. SKIN: Warm, Dry, normal turgor, no rashes or lesions noted. <Abhi Villavicencio - Last Filed: 01/17/18 19:13> ED Treatment Course - Medications Given in the ED: ED Medications Discontinued Medications Generic Name Dose Route Start Last Admin Trade Name Rasheedq PRN Reason Stop Dose Admin Ibuprofen 600 mg 01/17/18 17:34 01/17/18 18:00 Motrin - PO 01/17/18 17:35 600 mg ONCE ONE Administration <Leticia Angulo - Last Filed: 01/17/18 18:57> - RADIOLOGY Radiology Studies Ordered: Category Date Time Status KNEE 3 POS-RIGHT [RAD] Stat Radiology 01/17/18 17:33 Ordered <Abhi Villavicencio - Last Filed: 01/17/18 19:13> Medical Decision Making - Medical Decision Making 01/17/18 18:58 Dr. Art was paged via call service at 6:57pm. Awaiting call back <KevLeticia - Last Filed: 01/17/18 18:57> - Medical Decision Making 01/17/18 17:38 47 her old female status post robotic partial right knee replacement. Had minor trauma with bending/twisting of the knee today in the car and rapidly developed pain, swelling, and decreased range of motion of the right knee. Plan is for x-rays, Motrin, and ice pack. Further plans pending results. 01/17/18 19:07 X-ray shows no fracture or dislocation. There is a significant joint effusion around the knee. Impression: Right knee sprain status post prior partial knee replacement with significant joint effusion. Dr. Art, patient's orthopedist paged. Plan will be for knee immobilizer and crutches, ice and elevation, naproxen 440 mg twice daily, and follow up with orthopedics tomorrow. Patient declined more potent pain medication. <Abhi Villavicencio - Last Filed: 01/17/18 19:13> *DC/Admit/Observation/Transfer <Leticia Angulo - Last Filed: 01/17/18 18:57> - Discharge Dispostion Decision to Admit order: No <Abhi Villavicencio - Last Filed: 01/17/18 19:13> Diagnosis at time of Disposition: Knee effusion, right Right knee sprain Qualifiers: Encounter type: initial encounter Involved ligament of knee: unspecified ligament Qualified Code(s): S83.91XA - Sprain of unspecified site of right knee , initial encounter - Discharge Dispostion Disposition: HOME Condition at time of disposition: Stable - Prescriptions Prescriptions: Naproxen [Naprosyn -] 375 mg PO BID PRN #20 tablet PRN Reason: Pain - Referrals Referrals: Peter Art MD [Primary Care Provider] - Call tomorrow - Patient Instructions Printed Discharge Instructions: DI for Knee Effusion, DI for Knee Sprain Additional Instructions: You were evaluated today for right knee pain and swelling. The x-ray shows all the hardware from your prior surgery is in proper position. You should elevate the knee and rest at home. Wear the knee immobilizer when you're up from bed. Remove it when you're resting in bed. Use crutches to help support your weight when you go to the bathroom. Apply ice packs for 30 minutes every 2 hours to reduce the swelling. I spoke with Lenin Herrmann, the PA who works with Dr. Art. You have an appointment to go to see Dr. Art tomorrow at 12 noon. You do not need to call ahead as they are expecting you as per the instructions of Lenin Herrmann. - Post Discharge Activity Forms/Work/School Notes: Back to Work
== END 2018-01-17 19:34 | disposition home or self-care (01) ==
LOC: FER 16:35
PROC: 2W3QX1Z Immobilization of Right Lower Leg using Splint (ICD-10-PCS; principal; 2018-01-17)
DX: M25.461 Effusion, right knee (principal); S83.91XA Sprain of unspecified site of right knee, initial encounter; X58.XXXA Exposure to other specified factors, initial encounter; Y93.89 Activity, other specified; Y92.9 Unspecified place or not applicable
CPT/HCPCS: 73562-TC-RT-FY; 99283-25

== ENCOUNTER 2018-03-31 05:15 | Day surgery (SDC) | payer BC ==
[2018-03-30 11:35] VITALS: BMI 30.2
[2018-03-31] MEDS ORDERED: ONDANSETRON 4 MG/2 ML VIAL IVPUSH PRN (08:40)
[2018-03-31] MEDS ORDERED: LACTATED RINGERS SOLUTION 1,000 ML IV SCH (08:45)
--- NOTE | 2018-03-31 09:49 | HP ---
Satellite H - Chief Complaint Chief Complaint: right knee pain - Past Medical History Allergies/Adverse Reactions: Allergies Allergy/AdvReac Type Severity Reaction Status Date / Time morphine Allergy Severe Verified 03/31/18 09:07 peanut Allergy Severe Difficulty Verified 03/31/18 09:07 Breathing Penicillins Allergy Severe Difficulty Verified 03/31/18 09:06 Breathing ...LMP: 03/11/18 - Current Medications Current Medications: Home Medications Medication Instructions Recorded EPINEPHrine (EPI-PEN 0.3MG) 0.3 mg IM ASDIR PRN #2 pens 08/19/16 [Epipen 0.3MG -] Acetaminophen [Tylenol .Regular 650 mg PO Q8H PRN 03/30/18 Strength -] Cetirizine HCl [Zyrtec -] 10 mg PO DAILY 03/30/18 Oxycodone HCl/Acetaminophen 1 tab PO Q6H #20 tablet MDD 4 03/31/18 [Percocet 5-325 mg Tablet] Satellite Physical Exam - Physical Examination Vital Signs: Vital Signs Period Temp Pulse Resp BP Sys/Wood Pulse Ox Last 24 Hr 98.0 F-98.0 F 81-81 20-20 144-144/96-96 98 General Appearance: Well Nourished, Well Developed, Alert & Oriented x3 ENT: Clear Lung: Normal air movement Heart: Regular rate & rhythm Extremities: Other (right knee- + swelling, + ttp, decr rom, nvi MRI + mt, OA) Neurological: Intact, Alert, Oriented Satellite Impression/Plan - Impression/Plan Impression: right knee internal derangement Operative Procedure: right knee arthroscopy Date to be Performed: 03/31/18
[2018-03-31] MEDS ORDERED: MIDAZOLAM HCL 2 MG/2 ML SINGLE DOSE VIAL ONE (09:55)
[2018-03-31] MEDS ORDERED: LIDOCAINE HCL 2% (20ML MULTI-DOSE VIAL) NR ONE (09:58)
[2018-03-31] MEDS ORDERED: PROPOFOL 20 ML ONE ×6 (10:03→10:46)
[2018-03-31] MEDS ORDERED: KETAMINE HCL 200 MG/20 ML VIAL ONE (10:23)
[2018-03-31] MEDS ORDERED: CLINDAMYCIN PHOSPHATE 600 MG/4 ML VIAL IVPB ONE (10:24)
[2018-03-31] MEDS ORDERED: KETOROLAC TROMETHAMINE 30 MG/1 ML VIAL ONE (10:29)
[2018-03-31] MEDS ORDERED: DEXAMETHASONE SOD PHOSPHATE 4 MG/1 ML VIAL ONE (10:30)
[2018-03-31] MEDS ORDERED: BUPIVACAINE HCL/PF 0.5% (5MG/ML) 10 ML VIAL ONE (10:46)
[2018-03-31] MEDS ORDERED: BUPIVACAINE HCL/PF (5 MG/ML) 30 ML VIAL IJ ONE (10:50)
--- NOTE | 2018-03-31 11:01 | OP ---
Operative Note - Note: Operative Date: 03/31/18 Pre-Operative Diagnosis: right knee pain, recurrent effusions, lateral meniscus tear, OA Operation: right knee arthroscopy, partial lateral meniscectomy, debridement chondroplasty, partial synovectomy Findings: lateral OA, lateral meniscus tear, possible PVNS Post-Operative Diagnosis: Same as Pre-op Surgeon: Peter Art Anesthesiologist/[employer] ROOM ATTENDANT: Barrington Meléndez Anesthesia: General, Local Specimens Removed: shavings, possible PVNS Estimated Blood Loss (mls): 25 Drains, Volume Out (mls): 0 Blood Volume Replaced (mls): 0 Fluid Volume Replaced (mls): 500 Operative Report Dictated: Yes
--- NOTE | 2018-03-31 11:32 | OP ---
DATE OF OPERATION: 03/31/2018 PREOPERATIVE DIAGNOSIS: Right knee pain, recurrent effusions, osteoarthritis, lateral meniscus tear. 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 SURGERY: Right knee arthroscopy, partial lateral meniscectomy, debridement chondroplasty, and partial synovectomy. SURGEON: Peter Art MD ASSISTANTS: None. BENDING PRESS OPERATOR: Barrington Meléndez CRNA ANESTHESIA: LMA anesthesia with intraarticular injection of 20 mL 0.5% Marcaine. . DRAINS: None. COMPLICATIONS: None. SPECIMENS: Arthroscopic shavings. BLOOD LOSS: 25 mL. FLUID REPLACEMENT: 500 mL. INDICATIONS: This patient is a 48-year-old female with a preoperative diagnosis of right knee pain, recurrent effusions, osteoarthritis, and lateral meniscus tear. After understanding the potential risks, complications, alternatives, and benefits of surgery versus nonsurgical treatment, the patient elected to undergo this procedure. DESCRIPTION OF PROCEDURE: The patient was brought to the operating room, peripheral IV placed, and IV sedation was given. IV Ancef 2 g was given. LMA anesthesia was induced. Ample Webril was placed on the right thigh. She was placed into the C-clamp leg-anne with ample padding throughout including the Styrofoam ring. The right left lower extremity was prepped and draped in sterile fashion, elevated, exsanguinated with an Esmarch bandage. The tourniquet was inflated to 275 mmHg. A superior medial outflow portal was established. Immediately about 30 mL of blood was evacuated from the knee joint. Lateral portal was established. Arthroscope was introduced into the joint. Under direct visualization using a spinal needle, a medial portal was established. A diagnostic arthroscopy was performed. Immediately it was apparent that the patient may have PVNS. She had a lot of hemosiderin/rust-colored excessive synovitis covering the entire inner capsule of the knee. An extensive/partial synovectomy was performed of all this tissue, and it will be sent to Pathology to rule out PVNS. There was some scar tissue around the LUIS prosthesis, which was debrided, but the prostheses themselves all looked quite good. In the patellofemoral joint, there were some scar tissue bands, which were cut with the basket forceps and debrided with the shaver, and the partial synovectomy was performed to get rid of the synovitis/possible PVNS. Next, lateral compartment was directly visualized, and she was seen to have osteoarthritis of the lateral compartment, and there was some osteoarthritis, which was debrided after the partial lateral meniscectomy and debridement chondroplasty. An additional partial synovectomy was performed in the lateral compartment as well as the intercondylar notch and the anterior compartment of the knee. The area was copiously irrigated and washed out. All instrumentation removed. The arthroscopy portals were closed with 3-0 nylon sutures. Then, 20 mL of 0.5% Marcaine was introduced into the joint. The area was washed and dried, covered with Xeroform gauze, 4 x 4 gauze, Webril, and a 6-inch VERONA bandage. The tourniquet was taken down after a total tourniquet of about 25 minutes. There were no complications during the case. The patient tolerated the procedure well and was brought to the ambulatory recovery room in stable condition. Shania [id number]
[2018-03-31] MEDS ORDERED: oxyCODONE HCL 5 MG TABLET ONE (12:51)
[2018-03-31 12:55] VITALS: TEMP 98
[2018-03-31] MEDS ORDERED: oxyCODONE HCL 5 MG TABLET PO PRN (13:13)
[2018-03-31 16:12] VITALS: BP 115/70; PULSE 85
--- NOTE | 2018-04-07 13:40 | PATH ---
Surgical Pathology Report Patient Name: VERONICA DEL ACRUZ [facility]. Rec. #: [id number] /Age/Gender: 1970 (Age: 48) / F Account: [id number] Location: [facility] SURGICAL Taken: 03/31/2018 Received: 03/31/2018 Reported: 04/07/2018 Physicians: Peter Art M.D. Specimen(s) Received RIGHT KNEE SHAVINGS Clinical History Right knee tear and arthritis Final Diagnosis RIGHT KNEE SHAVINGS: FIBROSYNOVIAL TISSUE WITH FLORID LYMPHOPLASMACYTIC (CHRONIC) INFLAMMATORY INFILTRATE, INCREASED PIGMENTED MACROPHAGES, REACTIVE SYNOVIAL HYPERPLASIA, AND MULTINUCLEATED GIANT CELLS IN ASSOCIATION WITH POLARIZABLE FOREIGN MATERIAL. SEE COMMENT. Comments: Findings favor a florid reactive synovitis. Correlation with other clinical data, including radiologic imaging studies is suggested if there is persistent concern for a neoplastic process (PVNS). Electronically Signed Lolita Ram M.D. Gross Description Received in formalin, labeled "right knee shavings," is a 4.5 x 4.0 x 0.4 cm. aggregate of sahni-yellow soft tissue fragments. A employment representative portion is submitted in one cassette. 03/31/201803/31/2018
== END 2018-03-31 15:10 | disposition home or self-care (01) ==
LOC: JASU-SURG 05:15
PROVIDERS: ATTEND Orthopaedic Surgery
PROC: 0SBC4ZZ Excision of Right Knee Joint, Percutaneous Endoscopic Approach (ICD-10-PCS; 2018-03-31)
PROC: 0SBC4ZZ Excision of Right Knee Joint, Percutaneous Endoscopic Approach (ICD-10-PCS; principal; 2018-03-31 10:00)
DX: M17.11 Unilateral primary osteoarthritis, right knee (principal); M25.561 Pain in right knee; M25.461 Effusion, right knee; M23.200 Derangement of unspecified lateral meniscus due to old tear or injury, right knee; M65.861 Other synovitis and tenosynovitis, right lower leg
CPT/HCPCS: 84703; 88304-TC; 94760

== ENCOUNTER 2018-11-24 10:28 | Inpatient (IN) | payer BC | END 2018-11-27 14:05 | disposition home health service (06) | LOC: FM/S 10:28 ==